=== PATIENT | female | born 1980 | race African-American/Black ===

== ENCOUNTER 2022-12-13 10:47 | Emergency (ER) | payer BC | END 2022-12-13 13:46 | disposition home or self-care (01) | LOC: CSHERS 10:47 | DX: J02.9 Acute pharyngitis, unspecified (principal) | CPT/HCPCS: 87081; 87430; 99283 ==

== ENCOUNTER 2022-12-31 17:08 | Emergency (ER) | payer BC ==
[2022-12-31] MEDS ORDERED: Ketorolac Tromethamine 30 MG/ML VIAL ONE (18:01)
== END 2022-12-31 18:34 | disposition home or self-care (01) ==
LOC: CSHERS 17:08
DX: B00.2 Herpesviral gingivostomatitis and pharyngotonsillitis (principal)
CPT/HCPCS: 96372; 99283; J1885